=== PATIENT | male | born 1960 | race African-American/Black ===

== ENCOUNTER 2020-07-03 23:04 | Emergency (ER) | payer OTHER ==
[~2020-07-03] VITALS: Ht 170.2 cm; Wt 99.8 kg
[2020-07-03 23:08] VITALS: BP 152/89
--- NOTE | 2020-07-03 23:18 | ER.PDOC ---
General Chief Complaint: Abdomen Pain Stated Complaint: ABDOMINAL PAIN Time seen by MD: 23:16 Source: patient Exam Limitations: no limitations History of Present Illness Initial Comments Generalized abdominal pain since this morning. Patient had nausea but no vomiting. No diarrhea. No fever or chills. He has a history of multiple bowel obstructions from previous surgeries and thinks that he may be having another one. Severity/Quality: moderate, sharpness Radiation: no radiation Associated Symptoms: other (Nausea) Exacerbated by: nothing Relieved By: nothing Allergies: Coded Allergies: No Known Allergies (Unverified , 07/03/20) Vital Signs First Vital Signs Date Time Temp Pulse Resp B/P (MAP) Pulse Ox O2 Delivery O2 Flow Rate FiO2 07/03/20 23:08 98.2 70 18 98 07/03/20 23:08 152/89 (110) Room Air Last Vital Signs Date Time Temp Pulse Resp B/P (MAP) Pulse Ox O2 Delivery O2 Flow Rate FiO2 07/03/20 23:08 98.2 70 18 07/03/20 23:08 152/89 (110) 98 Room Air Past Medical History Medical History: no pertinent history Surgical History: other (Bowel obstruction) Family History Significant Family History: no pertinent family hx Social History Smoking: non-smoker Drug Use: none Constitutional: no symptoms reported EENTM: no symptoms reported Respiratory: no symptoms reported Cardiovascular: no symptoms reported Gastrointestinal: see HPI Genitourinary: no symptoms reported All Other Systems: Reviewed and Negative Physical Exam General Appearance: No Apparent Distress, WD/WN Neck: Non-Tender, Full Range of Motion, Supple, Normal Inspection Respiratory: chest non-tender, lungs clear, normal breath sounds, no respiratory distress, no accessory muscle use Cardiovascular: Normal Peripheral Pulses, Regular Rate, Rhythm, No Edema, No Gallop, No JVD, No Murmur Gastrointestinal: No Organomegaly, No Pulsatile Mass, Hyperactive bowel sounds, Guarding, Tenderness (generalized), Other (Midline incisional scar) Back: Normal Inspection, No CVA Tenderness, No Vertebral Tenderness Extremities: Normal Range of Motion, Non-Tender, Normal Inspection, No Pedal Edema, No Calf Tenderness, Normal Capillary Refill, Pelvis Stable Neurologic/Psychiatric: medical officer II-XII NML as Tested, No Motor/Sensory Deficits, Alert, Normal Mood/Affect, Oriented x 3 Skin: Normal Color, Warm/Dry Lymphatic: No Adenopathy Results/Orders Results/Orders Orders - NEIDA GILLIS MD Cbc With Auto Diff (07/03/20 23:12) Comprehensive Metabolic Panel (07/03/20 23:12) Lipase (07/03/20 23:12) PT (07/03/20 23:12) Partial Thromboplastin Time. (07/03/20 23:12) Ct Abd/Pelvis Wo Iv Contrast (07/03/20 23:12) Ringer's Solution,Lactated (Lactated Rin (07/03/20 23:29) Morphine Sulfate (Morphine Sulfate) (07/03/20 23:29) 0.9 % Sodium Chloride (Ns 1000ml) (07/03/20 23:41) 0.9 % Sodium Chloride (Ns 1000ml) (07/03/20 23:47) Morphine Sulfate (Morphine Sulfate) (07/03/20 23:47) Blood Culture (07/04/20 00:16) Ceftriaxone Sodium (Rocephin) (07/04/20 00:17) Azithromycin (Zithromax) (07/04/20 00:17) Ekg-Routine (07/04/20 00:25) Vital Signs Date Time Temp Pulse Resp B/P (MAP) Pulse Ox O2 Delivery O2 Flow Rate FiO2 07/03/20 23:08 98.2 70 18 07/03/20 23:08 98.2 70 18 152/89 (110) 98 Room Air 07/03/20 23:08 98.2 70 18 98 Laboratory Tests Test 07/03/20 23:20 White Blood Count 7.9 10^3/uL (4.5-11.0) Red Blood Count 4.10 10^6/uL (4.50-5.90) L Hemoglobin 12.3 g/dL (13.9-16.3) L Hematocrit 38.9 % (37.0-53.0) Mean Corpuscular Volume 94.9 fL (78-100) Mean Corpuscular Hemoglobin 30.0 pg (26-34) Mean Corpuscular Hemoglobin Concent 31.6 g/dL (33-36.5) L Red Cell Distribution Width 13.2 % (11.5-14.5) Platelet Count 329 10^3/uL (150-400) Mean Platelet Volume 10.7 fL (7.8-11.0) Neutrophils (%) (Auto) 64.9 % (41.0-85.0) Lymphocytes (%) (Auto) 20.8 % (24.0-44.0) L Monocytes (%) (Auto) 6.9 % (5.0-12.0) Neutrophils # (Auto) 5.2 10^3/uL (1.8-7.7) Lymphocytes # (Auto) 1.65 10^3/uL1 (1.0-4.8) Monocytes # (Auto) 0.6 10^3/uL (0.3-0.8) Absolute Immature Granulocyte (auto 0.41 10^3 u/L (0-2) Absolute Eosinophils (auto) 0.2 10^3/uL (0.0-0.2) Immature Granulocytes % 5.20 % (0.00-0.50) H Eosinophils % 2.1 % (0.0-5.0) Basophils % 0.1 % (0.0-0.2) Basophils # 0.0 10^3/uL (0.0-0.1) Prothrombin Time 11.2 SEC (9.3-11.3) Prothrombin Time INR (Non-Therap) 1.1 Activated Partial Thromboplast Time 20.5 SEC (24.67-30.72) Sodium Level 138 mmol/L (132-145) Potassium Level 4.4 mmol/L (3.6-5.2) Chloride Level 105.0 mmol/L (96-109) Carbon Dioxide Level 23.5 mmol/L (20.0-32) Anion Gap 13.9 Blood Urea Nitrogen 18 mg/dL (7-18) Creatinine 1.93 mg/dL (0.59-1.40) H Estimated GFR () 43.5 (>/=60) Est GFR (CKD-EPI)(Non-Afr Angolan) 35.9 (>/=60) BUN/Creatinine Ratio 9.0 Glucose Level 111 mg/dL (70-110) H Calcium Level 8.8 mg/dL (8.4-10.5) Total Bilirubin 0.4 mg/dL (0.2-1.0) Aspartate Amino Transferase (AST) 20 U/L (0-35) Alanine Aminotransferase (ALT) 24 U/L (12-78) Alkaline Phosphatase 74 U/L (50-136) Total Protein 8.1 g/dL (6.4-8.2) Albumin 3.2 g/dL (3.4-5.0) L Globulin 4.9 Albumin/Globulin Ratio 0.653 Lipase 115 U/L (114-286) Progress Progress CT abdomen/pelvis: Postsurgical changes throughout the gastrointestinal tract, with multiple loops of fecalized small bowel in the central pelvis consistent with transit delay. No discrete obstruction. 2. Diffuse patchy airspace opacities throughout the lung bases, consistent with multi lobar pneumonia. 3. Cholelithiasis without CT evidence of cholecystitis. Labs are unremarkable. He was given morphine and his pain is resolved. CT abdomen pelvis did not show any obstruction. Patient has pneumonia. Patient told me that he was tested last weekend twice for COVID-19 and both test came out negative on 2 separate days. 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 He appreciated what we did for him. He had Rocephin and Azithromycin and will be discharged home on Levaquin. I told him to follow-up with his PCP in the next 2 to 3 days. Patient also understands that he has gallbladder stones and needs a follow-up with his PCP because this may be causing biliary colic. EKG/XRAY/CT/US EKG: NSR, no ST T wave changes EKG Comments: HR 56, normal P axis ER DEPART Departure Time of Disposition: 00:37 Disposition: 01 HOME, SELF-CARE Impression: Primary Impression: Pneumonia Additional Impressions: Cholelithiasis Biliary colic Condition: Stable Additional Instructions: Levofloxacin Tramadol Follow-up with your PCP in 2 to 3 days Return to ED if worsening pain or concerns Duration or Time Spent with Pa: 60 min Problem Qualifiers Primary Impression: Pneumonia Pneumonia type: due to unspecified organism Laterality: bilateral Lung location: lower lobe of lung Qualified Codes: J18.9 - Pneumonia, unspecified organism Additional Impressions: Cholelithiasis Cholelithiasis location: gallbladder Cholecystitis presence: without cholecystitis Biliary obstruction: without biliary obstruction Qualified Codes: K80.20 - Calculus of gallbladder without cholecystitis without obstruction NEIDA GILLIS MD Jul 03, 2020 23:18
[2020-07-03] MEDS ORDERED: LACTATED RINGERS 1,000 ML IV STA (23:29)
[2020-07-03] MEDS ORDERED: MORPHINE SULFATE IV STA (23:29)
[2020-07-03 23:34] LABS: BASOPHIL % 0.1 % (0.0-0.2); EOSINOPHIL # 0.2 10^3/uL (0.0-0.2); EOSINOPHIL % 2.1 % (0.0-5.0); LYMPHOCYTES # 1.65 10^3/uL1 (1.0-4.8); LYMPHOCYTES % 20.8 % (24.0-44.0); MONOCYTES # 0.6 10^3/uL (0.3-0.8); MONOCYTES % 6.9 % (5.0-12.0); NEUTROPHIL # 5.2 10^3/uL (1.8-7.7); NEUTROPHILS % 64.9 % (41.0-85.0); PLATELET COUNT 329 10^3/uL (150-400); RED CELL DISTRIBUTION WIDTH 13.2 % (11.5-14.5)
[2020-07-03] MEDS ORDERED: NS 1000ML 1,000 ML IV STA (23:41)
[2020-07-03 23:44] LABS: CALCIUM 8.8 mg/dL (8.4-10.5); CARBON DIOXIDE 23.5 mmol/L (20.0-32)
[2020-07-03] MEDS ORDERED: NS 1000ML 1,000 ML ONE (23:47)
[2020-07-03] MEDS ORDERED: MORPHINE SULFATE ONE (23:47)
--- NOTE | 2020-07-04 00:06 | DIREP ---
PROCEDURE:CT ABDOMEN/PELVIS W/O CONTRAST COMPARISON:None. INDICATIONS:Generalized abdominal pain TECHNIQUE:Axial images were created through the abdomen and pelvis without intravenous contrast material. No oral contrast was administered. Sagittal and coronal reconstructions were performed from source images. FINDINGS: LUNG BASES:Diffuse patchy airspace opacities throughout the lung bases. LIVER:Normal. No significant liver lesions are identified. BILIARY:There are gallstone in the lumen of the gallbladder. There is no biliary ductal dilatation. PANCREAS:Normal. No lesion, fluid collection, ductal dilatation, or atrophy. SPLEEN:Normal. No enlargement or focal lesion. ADRENALS:Normal. No mass or enlargement. URINARY TRACT:Normal. No focal lesions or hydronephrosis. AORTA/VASCULAR:Normal. No aneurysm. RETROPERITONEUM:Normal. No mass or adenopathy. BOWEL/MESENTERY:Multiple surgical changes throughout the gastrointestinal tract. Multiple fecalized loops of small bowel within the central pelvis. No discrete transition point or evidence for obstruction. ABDOMINAL WALL:Normal. No mass or hernia. PELVIC ORGANS:Normal. No visible mass. Pelvic organs appropriate for patient age. BONES:Degenerative changes. No acute bony abnormality OTHER:Negative. CONCLUSION:1. Postsurgical changes throughout the gastrointestinal tract, with multiple loops of fecalized small bowel in the central pelvis consistent with transit delay. No discrete obstruction. 2. Diffuse patchy airspace opacities throughout the lung bases, consistent with multi lobar pneumonia. 3. Cholelithiasis without CT evidence of cholecystitis. Dictated by: Palak Gonzalez M.D. on 07/03/2020 at 11:59 PM
[2020-07-04] MEDS ORDERED: ROCEPHIN 1,000 MG in NS 100ML 100 ML IV STA (00:17)
[2020-07-04] MEDS ORDERED: ZITHROMAX PO STA (00:17)
--- NOTE | 2020-07-04 00:34 | PCM.EKG ---
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
[2020-07-04] MEDS ORDERED: ROCEPHIN ONE (00:50)
[2020-07-04] MEDS ORDERED: ZITHROMAX ONE (00:50)
[2020-07-04] MEDS ORDERED: ZOFRAN IV STA (00:55)
[2020-07-04] MEDS ORDERED: ZOFRAN ONE (00:55)
== END 2020-07-04 00:58 | disposition home or self-care (01) ==
LOC: ER 23:04
DX: K80.70 Calculus of gallbladder and bile duct without cholecystitis without obstruction (principal); J18.9 Pneumonia, unspecified organism
CPT/HCPCS: 36415 ×2; 74176; 80053; 83690; 85025; 85610; 85730; 87040; 93005; 96361; 96365; 96375 ×2; 99285; J0696 ×2; J2270; J2405; J7030; J7050; Q0144